=== PATIENT | female | born 1970 | race American Indian/Alaskan Native ===

== ENCOUNTER 2020-03-22 01:51 | Emergency (ER) | payer MEDICAID ==
[~2020-03-22] VITALS: Ht 152.4 cm; Wt 77.1 kg
[2020-03-22] MEDS ORDERED: DIPH50CA37 PO (02:07)
[2020-03-22] MEDS ORDERED: PROM25TA15 PO (02:07)
[2020-03-22] MEDS ORDERED: [UNRECOGNIZED DRUG - NUTRITION] (02:07)
--- NOTE | 2020-03-22 02:11 | NUR ---
Dr. Barron at bedside for MSE.
[2020-03-22] MEDS ORDERED: PROMETHAZINE HCL INJ 12.5 MG in IV DEXTROSE 5% 50 ML IV ONE (02:30)
[2020-03-22 02:36] VITALS: BP 117/73
--- NOTE | 2020-03-22 02:36 | NUR ---
Patient discharged to home in stable condition. Written and verbal after care instructions given. Patient verbalizes understanding of instructions. Stressed follow up or return to ER for worsening s/s. Patient ambulated out of ER with steady gait, no acute signs of distress, VSS, all belongings taken.
== END 2020-03-22 02:37 | disposition home or self-care (01) ==
LOC: ER 01:54
DX: R10.9 Unspecified abdominal pain (principal); R11.2 Nausea with vomiting, unspecified; G89.4 Chronic pain syndrome; Z98.84 Bariatric surgery status; Z86.711 Personal history of pulmonary embolism; Z87.11 Personal history of peptic ulcer disease
CPT/HCPCS: A4663; J2550; J7060

== ENCOUNTER 2025-03-01 21:47 | Inpatient (IN) | payer MEDICAID ==
[~2025-03-01] VITALS: Ht 152.4 cm; Wt 65.8 kg
[~2025-03-01 21:47] MED LIST: DIPH50CA37 PO; PROM25TA15 PO; [UNRECOGNIZED DRUG - NUTRITION]
[2025-03-01] MEDS ORDERED: PANTOPRAZOLE SODIUM 40 MG VIAL ONE (23:06)
[2025-03-01] MEDS: IV NORMAL SALINE 1000 ML BAG IV ONE (23:12)
[2025-03-01] MEDS: PANTOPRAZOLE SODIUM IV 80 MG in IV DEXTROSE 5% 100 ML IV ONE (23:12)
[2025-03-01 23:16] LABS: BASOPHILS % (AUTO) 0.8 % (0.0-2.0); EOSINOPHILS # (AUTO) 0.3 K/uL (0.0-0.7); EOSINOPHILS % (AUTO) 5.9 % (0.0-7.0); HEMATOCRIT 22.3 % (31.2-41.9); HEMOGLOBIN 7.5 g/dL (10.9-14.3); LYMPHOCYTES % (AUTO) 21.1 % (20.5-51.5); MEAN CORPUSCULAR HEMOGLOBIN 28.8 uug (24.7-32.8); MEAN CORPUSCULAR HGB CONC 34 g/dL (32.3-35.6); MEAN CORPUSCULAR VOLUME 85.5 fL (75.5-95.3); MONOCYTES # (AUTO) 0.4 K/uL (0.1-1.30); MONOCYTES % (AUTO) 7.6 % (0.0-11.0); NEUTROPHILS % (AUTO) 64.6 % (38.5-71.5); PLATELET COUNT (AUTO) 247 K/uL (179-408); RED BLOOD CELL COUNT(AUTO) 2.61 MIL/uL (3.63-4.92); RED CELL DISTRIBUTION WIDTH 15.5 % (12.3-17.7); WHITE BLOOD COUNT (AUTO) 4.7 K/uL (3.8-11.8)
[2025-03-01 23:17] LABS: DIFFERENTIAL COMMENT 1
[2025-03-01] MEDS ORDERED: diphenhydrAMINE 50 MG/1 ML VIAL ONE (23:23)
[2025-03-01] MEDS ORDERED: PROMETHAZINE HCL 12.5 MG SUPP.RECT RC ONE (23:24)
[2025-03-01] MEDS: diphenhydrAMINE 50 MG/1 ML VIAL IV ONE (23:32)
[2025-03-01] MEDS: PROMETHAZINE HCL 12.5 MG SUPP.RECT RC ONE (23:33)
[2025-03-01 23:34] LABS: ALBUMIN 3.3 g/dL (3.4-5.0); BILIRUBIN,DIRECT 0.1 mg/dL (0.0-0.2); BILIRUBIN,TOTAL 0.2 mg/dL (0.2-1.0); CALCIUM 9.5 mg/dL (8.5-10.1); CREATININE 0.9 mg/dL (0.6-1.3); POTASSIUM 3.6 mmol/L (3.5-5.1); TOTAL PROTEIN, SERUM 6.9 g/dL (6.4-8.2)
[2025-03-01] MEDS ORDERED: HYDROMORPHONE 1 MG/1 ML DISP.SYRIN ONE (23:52)
[2025-03-01] MEDS: HYDROMORPHONE 1 MG/1 ML DISP.SYRIN IV ONE (23:53)
[2025-03-02] MEDS ORDERED: IOHEXOL 300MG/ML 100 ML INFUS..BTL ONE (00:01)
[2025-03-02] MEDS ORDERED: HYDROMORPHONE 1 MG/1 ML DISP.SYRIN ONE ×3 (00:47→05:43)
[2025-03-02] MEDS: HYDROMORPHONE 1 MG/1 ML DISP.SYRIN IV ONE (00:49)
[2025-03-02] MEDS: IV D5 1/2 NS 1000 ML 1,000 ML IV ONE (01:00)
[2025-03-02] MEDS ORDERED: ACETAMINOPHEN 650 MG SUPP.RECT RC ONE (02:09)
[2025-03-02] MEDS ORDERED: PROMETHAZINE HCL 25 MG SUPP.RECT RC ONE (02:09)
[2025-03-02] MEDS: PROMETHAZINE HCL 12.5 MG SUPP.RECT RC ONE (02:11)
[2025-03-02] MEDS: ACETAMINOPHEN 650 MG SUPP.RECT RC PRN (02:11)
[2025-03-02] MEDS ORDERED: diphenhydrAMINE 50 MG/1 ML VIAL ONE (02:51)
[2025-03-02] MEDS: HYDROMORPHONE 1 MG/1 ML DISP.SYRIN IV PRN (02:57)
[2025-03-02] MEDS: diphenhydrAMINE 50 MG/1 ML VIAL IV ONE ×2 (02:57→10:49)
[2025-03-02 07:51] LABS: BASOPHILS % (AUTO) 0.7 % (0.0-2.0); EOSINOPHILS # (AUTO) 0.3 K/uL (0.0-0.7); EOSINOPHILS % (AUTO) 11.5 % (0.0-7.0); HEMOGLOBIN 7.6 g/dL (10.9-14.3); LYMPHOCYTES # (AUTO) 0.7 K/uL (0.8-4.8); LYMPHOCYTES % (AUTO) 25.5 % (20.5-51.5); MEAN CORPUSCULAR HEMOGLOBIN 27.9 uug (24.7-32.8); MEAN CORPUSCULAR HGB CONC 33 g/dL (32.3-35.6); MEAN CORPUSCULAR VOLUME 84.4 fL (75.5-95.3); MONOCYTES # (AUTO) 0.3 K/uL (0.1-1.30); MONOCYTES % (AUTO) 11.2 % (0.0-11.0); NEUTROPHILS # (AUTO) 1.4 K/uL (1.8-8.9); NEUTROPHILS % (AUTO) 51.1 % (38.5-71.5); PLATELET COUNT (AUTO) 198 K/uL (179-408); RED BLOOD CELL COUNT(AUTO) 2.73 MIL/uL (3.63-4.92); RED CELL DISTRIBUTION WIDTH 17.3 % (12.3-17.7); WHITE BLOOD COUNT (AUTO) 2.8 K/uL (3.8-11.8)
[2025-03-02 07:56] LABS: DIFFERENTIAL COMMENT 1
[2025-03-02 08:02] LABS: CALCIUM 8.2 mg/dL (8.5-10.1); MAGNESIUM 1.8 mg/dL (1.8-2.4); POTASSIUM 3.5 mmol/L (3.5-5.1)
[2025-03-02] MEDS ORDERED: HYDR1SYR4 IV (10:16)
[2025-03-02] MEDS ORDERED: PANT40VI IV (10:16)
[2025-03-02] MEDS ORDERED: FAMO20VI10 IV (10:16)
[2025-03-02] MEDS ORDERED: PROM25VI IV (10:16)
[2025-03-02] MEDS ORDERED: DIPH50VI18 IV (10:16)
[2025-03-02] MEDS: PANTOPRAZOLE SODIUM 40 MG VIAL IV SCH (10:48)
[2025-03-02] MEDS: PROMETHAZINE HCL 25 MG SUPP.RECT RC ONE (10:50)
[2025-03-02 12:00] VITALS: BP 146/76; TEMP 97.9; O2SAT 96
[2025-03-02] MEDS: diphenhydrAMINE 50 MG/1 ML VIAL IV PRN (16:15)
[2025-03-02 16:30] VITALS: BP 127/71; TEMP 98; O2SAT 54
[2025-03-02] MEDS ORDERED: PROPOFOL 200 MG/20 ML BOTTLE ONE (17:00)
[2025-03-03 00:46] VITALS: BP 154/78; TEMP 98; O2SAT 100
[2025-03-03 07:35] VITALS: BP 127/59; TEMP 97.6; O2SAT 96
[2025-03-03 09:55] LABS: BASOPHILS % (AUTO) 0.7 % (0.0-2.0); EOSINOPHILS # (AUTO) 0.4 K/uL (0.0-0.7); HEMATOCRIT 25.7 % (31.2-41.9); HEMOGLOBIN 8.7 g/dL (10.9-14.3); LYMPHOCYTES # (AUTO) 0.8 K/uL (0.8-4.8); LYMPHOCYTES % (AUTO) 26.2 % (20.5-51.5); MEAN CORPUSCULAR HEMOGLOBIN 28.3 uug (24.7-32.8); MEAN CORPUSCULAR HGB CONC 34 g/dL (32.3-35.6); MEAN CORPUSCULAR VOLUME 83.8 fL (75.5-95.3); MONOCYTES # (AUTO) 0.3 K/uL (0.1-1.30); MONOCYTES % (AUTO) 9.1 % (0.0-11.0); NEUTROPHILS # (AUTO) 1.6 K/uL (1.8-8.9); PLATELET COUNT (AUTO) 213 K/uL (179-408); RED BLOOD CELL COUNT(AUTO) 3.07 MIL/uL (3.63-4.92); RED CELL DISTRIBUTION WIDTH 17.3 % (12.3-17.7); WHITE BLOOD COUNT (AUTO) 3.1 K/uL (3.8-11.8)
[2025-03-03 09:57] LABS: DIFFERENTIAL COMMENT 1
[2025-03-03 11:36] VITALS: BP 150/58; TEMP 98.1; O2SAT 97
== END 2025-03-03 14:50 | disposition home or self-care (01) | DRG 253 ==
LOC: ER 21:47 → UNDOADMIN 03-02 07:47 → ICU IN 03-02 07:47 → TELE-TD3 03-02 07:47 → TELE3 03-02 08:15
PROVIDERS: ATTEND Student in an Organized Health Care Education/Training Program
PROC: 0DJ08ZZ Inspection of Upper Intestinal Tract, Via Natural or Artificial Opening Endoscopic (ICD-10-PCS; principal; 2025-03-02 17:00)
PROC: 30243N1 Transfusion of Nonautologous Red Blood Cells into Central Vein, Percutaneous Approach (ICD-10-PCS; principal; 2025-03-02 17:00)
DX: K92.0 Hematemesis (principal); E44.1 Mild protein-calorie malnutrition; D62 Acute posthemorrhagic anemia; G43.909 Migraine, unspecified, not intractable, without status migrainosus; K95.89 Other complications of other bariatric procedure; Z98.84 Bariatric surgery status; Z68.28 Body mass index [BMI] 28.0-28.9, adult; Z88.0 Allergy status to penicillin; Z86.718 Personal history of other venous thrombosis and embolism; Z88.6 Allergy status to analgesic agent; Z88.8 Allergy status to other drugs, medicaments and biological substances; G89.29 Other chronic pain
CPT/HCPCS: 36415; 71045; 83690; 83735; 84100; 85025; 85610; 86850; 86900; 86901; 86920; A4606; A4663; G0378; J1171; J1200; J2470; J3490; J7040; J7042; P9016; Q9967

== ENCOUNTER 2025-03-25 17:12 | Inpatient (IN) | payer MEDICAID ==
[~2025-03-25] VITALS: Ht 152.4 cm; Wt 63.5 kg
[~2025-03-25 17:12] MED LIST changes: -DIPH50CA37 PO; +DIPH50VI18 IV; +FAMO20VI10 IV; +PANT40VI IV; -PROM25TA15 PO; +PROM25VI IV; -[UNRECOGNIZED DRUG - NUTRITION]
[2025-03-25] MEDS ORDERED: PANTOPRAZOLE SODIUM 40 MG VIAL ONE (17:36)
[2025-03-25] MEDS ORDERED: diphenhydrAMINE 50 MG/1 ML VIAL ONE (17:36)
[2025-03-25] MEDS ORDERED: HYDROMORPHONE 1 MG/1 ML DISP.SYRIN ONE ×2 (17:37→19:45)
[2025-03-25] MEDS ORDERED: PROMETHAZINE HCL 12.5 MG SUPP.RECT RC ONE (17:38)
[2025-03-25 17:41] LABS: PLATELET COUNT (AUTO) 258 K/uL (179-408); RED BLOOD CELL COUNT(AUTO) 2.83 MIL/uL (3.63-4.92); RED CELL DISTRIBUTION WIDTH 17.1 % (12.3-17.7); WHITE BLOOD COUNT (AUTO) 2.6 K/uL (3.8-11.8)
[2025-03-25] MEDS: diphenhydrAMINE 50 MG/1 ML VIAL IV ONE (17:48)
[2025-03-25] MEDS: HYDROMORPHONE 1 MG/1 ML DISP.SYRIN IV ONE ×2 (17:49→19:54)
[2025-03-25] MEDS: PANTOPRAZOLE SODIUM 40 MG VIAL IV ONE (17:49)
[2025-03-25] MEDS: PROMETHAZINE HCL 12.5 MG SUPP.RECT RC ONE (17:49)
[2025-03-25] MEDS: IV NORMAL SALINE 1000 ML BAG IV ONE (17:50)
[2025-03-25 17:52] LABS: ASPARTATE AMINOTRANSFERASE 16.0 U/L (15-37); CREATININE 1.1 mg/dL (0.6-1.3); SODIUM SERUM 145.0 mmol/L (136-145); TOTAL PROTEIN, SERUM 6.9 g/dL (6.4-8.2); UREA NITROGEN, BLOOD 14.0 mg/dL (7-18)
[2025-03-25] MEDS ORDERED: ACETAMINOPHEN 650 MG SUPP.RECT RC PRN (21:45)
[2025-03-25] MEDS: HYDROMORPHONE 1 MG/1 ML DISP.SYRIN IV PRN (21:55)
[2025-03-25] MEDS: IV D5/ 0.9% NACL 1,000 ML IV PRN (22:16)
[2025-03-25 22:29] VITALS: BP 165/91; TEMP 98.3; O2SAT 98
[2025-03-26] MEDS ORDERED: METOCLOPRAMIDE HCL 10 MG/2 ML VIAL IV PRN (00:45)
[2025-03-26 00:51] VITALS: BP 130/94; TEMP 97.6; O2SAT 98
[2025-03-26] MEDS ORDERED: PROMETHAZINE HCL 25 MG SUPP.RECT RC ONE (01:14)
[2025-03-26] MEDS: diphenhydrAMINE 50 MG/1 ML VIAL IV ONE (01:19)
[2025-03-26] MEDS: PROMETHAZINE HCL 25 MG SUPP.RECT RC ONE (01:20)
[2025-03-26 04:21] VITALS: BP 147/57; TEMP 98.3; O2SAT 98
[2025-03-26 06:49] LABS: PLATELET COUNT (AUTO) 230 K/uL (179-408); RED BLOOD CELL COUNT(AUTO) 2.76 MIL/uL (3.63-4.92); RED CELL DISTRIBUTION WIDTH 16.7 % (12.3-17.7); WHITE BLOOD COUNT (AUTO) 2.3 K/uL (3.8-11.8)
[2025-03-26 07:03] LABS: ASPARTATE AMINOTRANSFERASE 13.0 U/L (15-37); CREATININE 0.9 mg/dL (0.6-1.3); SODIUM SERUM 142.0 mmol/L (136-145); TOTAL PROTEIN, SERUM 6.4 g/dL (6.4-8.2); UREA NITROGEN, BLOOD 12.0 mg/dL (7-18)
[2025-03-26 08:00] VITALS: BP 148/85; TEMP 97.8; O2SAT 97
[2025-03-26] MEDS ORDERED: SEVOFLURANE 250 ML BOTTLE ONE (08:14)
[2025-03-26] MEDS: PANTOPRAZOLE SODIUM 40 MG VIAL IV SCH (08:28)
[2025-03-26] MEDS ORDERED: PROPOFOL 200 MG/20 ML BOTTLE ONE (09:55)
[2025-03-26] MEDS: HYDROMORPHONE 1 MG/1 ML DISP.SYRIN IV PRN (11:34)
[2025-03-26 11:39] VITALS: BP 144/82; TEMP 98.4; O2SAT 98
[2025-03-26] MEDS ORDERED: HYDR-3980 PO (11:50)
[2025-03-26 15:59] VITALS: BP 158/78; TEMP 99.2; O2SAT 99
[2025-03-26] MEDS: diphenhydrAMINE 50 MG/1 ML VIAL IV PRN (16:25)
[2025-03-26 19:00] VITALS: BP 153/77; TEMP 99.2; O2SAT 97
[2025-03-27 06:34] VITALS: BP 178/93; TEMP 99.3; O2SAT 96
[2025-03-27 07:07] VITALS: BP 140/74; TEMP 98.4
[2025-03-27] MEDS ORDERED: PROPOFOL 200 MG/20 ML BOTTLE ONE (10:00)
[2025-03-27 10:51] VITALS: TEMP 98.2
== END 2025-03-27 13:10 | disposition left against medical advice (07) | DRG 241 ==
LOC: ER 17:14 → TELE3 20:30 → MEDSURG3 03-26 10:02
PROVIDERS: ADMIT Internal Medicine; ATTEND Internal Medicine
PROC: 0DJ08ZZ Inspection of Upper Intestinal Tract, Via Natural or Artificial Opening Endoscopic (ICD-10-PCS; 2025-03-26)
PROC: 0DB68ZX Excision of Stomach, Via Natural or Artificial Opening Endoscopic, Diagnostic (ICD-10-PCS; principal; 2025-03-27 10:00)
DX: K25.4 Chronic or unspecified gastric ulcer with hemorrhage (principal); D72.819 Decreased white blood cell count, unspecified; D62 Acute posthemorrhagic anemia; K25.7 Chronic gastric ulcer without hemorrhage or perforation; E66.9 Obesity, unspecified; Z53.29 Procedure and treatment not carried out because of patient's decision for other reasons; Z87.19 Personal history of other diseases of the digestive system; K31.84 Gastroparesis; G89.4 Chronic pain syndrome; Z98.84 Bariatric surgery status; Z88.0 Allergy status to penicillin; Z86.718 Personal history of other venous thrombosis and embolism; Z88.6 Allergy status to analgesic agent; Z88.8 Allergy status to other drugs, medicaments and biological substances; Z90.49 Acquired absence of other specified parts of digestive tract; Z68.27 Body mass index [BMI] 27.0-27.9, adult; Z53.8 Procedure and treatment not carried out for other reasons
CPT/HCPCS: 36415; 83605; 83735; 84100; 85025; 85610; 85730; 86850; 86900; 86901; A4606; A4663; G0378; J1171; J1200; J2470; J3490; J7040; J7042

== ENCOUNTER 2025-04-29 15:25 | Inpatient (IN) | payer MEDICAID ==
[~2025-04-29] VITALS: Ht 152.4 cm; Wt 61.2 kg
[~2025-04-29 15:25] MED LIST changes: +HYDR-3980 PO
[2025-04-29] MEDS ORDERED: HYDROMORPHONE 1 MG/1 ML DISP.SYRIN ONE (16:22)
[2025-04-29] MEDS ORDERED: diphenhydrAMINE 50 MG/1 ML VIAL ONE (16:22)
[2025-04-29] MEDS: diphenhydrAMINE 50 MG/1 ML VIAL IV ONE (16:26)
[2025-04-29] MEDS: HYDROMORPHONE 1 MG/1 ML DISP.SYRIN IV ONE (16:27)
[2025-04-29] MEDS ORDERED: PANTOPRAZOLE SODIUM 40 MG VIAL ONE ×2 (16:29→16:37)
[2025-04-29 16:35] LABS: PLATELET COUNT (AUTO) 302 K/uL (179-408); RED BLOOD CELL COUNT(AUTO) 2.91 MIL/uL (3.63-4.92); RED CELL DISTRIBUTION WIDTH 17.9 % (12.3-17.7); WHITE BLOOD COUNT (AUTO) 3.6 K/uL (3.8-11.8)
[2025-04-29 16:42] LABS: CREATININE 0.9 mg/dL (0.6-1.3); SODIUM SERUM 144 mmol/L (136-145); UREA NITROGEN, BLOOD 17 mg/dL (7-18)
[2025-04-29] MEDS: PANTOPRAZOLE SODIUM IV 80 MG in IV DEXTROSE 5% 100 ML IV ONE (16:46)
[2025-04-29 16:47] LABS: ASPARTATE AMINOTRANSFERASE 7 U/L (15-37); TOTAL PROTEIN, SERUM 7.2 g/dL (6.4-8.2)
[2025-04-29] MEDS: PANTOPRAZOLE SODIUM IV 80 MG in IV DEXTROSE 5% 500 ML IV ONE (17:05)
[2025-04-29] MEDS ORDERED: REMEDY ESSENTIAL ZINC PASTE 113 GM TP PRN (18:00)
[2025-04-29] MEDS ORDERED: ONDANSETRON 4 MG/2 ML VIAL IV PRN ×2 (18:00→18:45)
[2025-04-29] MEDS ORDERED: ACETAMINOPHEN 325 MG TABLET PO PRN (18:00)
[2025-04-29] MEDS ORDERED: MAGNESIUM HYDROXIDE 30 ML LIQUID UDC PO PRN (18:00)
[2025-04-29] MEDS ORDERED: MORPHINE SULFATE 2 MG/1 ML DISP.SYRIN ONE (18:35)
[2025-04-29] MEDS: MORPHINE SULFATE 2 MG/1 ML DISP.SYRIN IV PRN (18:38)
[2025-04-29 20:06] VITALS: BP 140/68; TEMP 98.3; O2SAT 97
[2025-04-29] MEDS: IV D5 1/2 NS 1000 ML 1,000 ML IV PRN (20:22)
[2025-04-29] MEDS: PANTOPRAZOLE SODIUM 40 MG VIAL IV SCH (20:34)
[2025-04-29] MEDS: HYDROMORPHONE 1 MG/1 ML DISP.SYRIN IV PRN (22:07)
[2025-04-29] MEDS: diphenhydrAMINE 50 MG/1 ML VIAL IV PRN (23:22)
[2025-04-30 04:30] VITALS: BP 152/75; TEMP 98.6; O2SAT 96
[2025-04-30 11:06] VITALS: BP 130/43; TEMP 97.6; O2SAT 100
[2025-04-30 11:19] LABS: PLATELET COUNT (AUTO) 268 K/uL (179-408); RED BLOOD CELL COUNT(AUTO) 2.81 MIL/uL (3.63-4.92); RED CELL DISTRIBUTION WIDTH 18.0 % (12.3-17.7); WHITE BLOOD COUNT (AUTO) 2.2 K/uL (3.8-11.8)
[2025-04-30 11:30] LABS: CREATININE 1.0 mg/dL (0.6-1.3); SODIUM SERUM 141.0 mmol/L (136-145); UREA NITROGEN, BLOOD 11.0 mg/dL (7-18)
[2025-04-30] MEDS: SOD FERRIC GLUC COMPLX/SUCROSE 125 MG in IV NORMAL SALINE 100 ML IV SCH (14:12)
[2025-04-30] MEDS ORDERED: HYDROMORPHONE 1 MG/ML IV (14:47)
[2025-04-30 15:30] VITALS: BP 142/75; TEMP 98.3; O2SAT 100
[2025-04-30] MEDS ORDERED: PROPOFOL 200 MG/20 ML BOTTLE ONE (18:18)
[2025-04-30] MEDS ORDERED: LIDOCAINE-MPF 2% 5 ML VIAL ONE (18:18)
[2025-04-30 18:48] VITALS: BP 149/85
[2025-04-30 19:46] VITALS: BP 150/80; TEMP 98.7; O2SAT 100
[2025-04-30] MEDS: SUCRALFATE 1 G/10 ML LIQUID UDC GT SCH (21:15)
[2025-05-01] VITALS (10 sets, daily range): BP systolic 123–175; BP diastolic 59–88; TEMP 97.8–98.7; O2SAT 95–98
[2025-05-01 06:50] LABS: PLATELET COUNT (AUTO) 207 K/uL (179-408); RED BLOOD CELL COUNT(AUTO) 2.53 MIL/uL (3.63-4.92); RED CELL DISTRIBUTION WIDTH 18.0 % (12.3-17.7)
[2025-05-01 07:13] LABS: CREATININE 0.9 mg/dL (0.6-1.3); SODIUM SERUM 142.0 mmol/L (136-145); UREA NITROGEN, BLOOD 10.0 mg/dL (7-18)
[2025-05-01 07:17] LABS: WHITE BLOOD COUNT (AUTO) 1.8 K/uL (3.8-11.8)
[2025-05-01 08:49] LABS: EOSINOPHILS % (MANUAL) 9 % (0-8); LYMPHOCYTES % (MANUAL) 24 % (20-40); MONOCYTES % (MANUAL) 8 % (2-10); NEUTROPHILS % (MANUAL) 59 % (42-75)
[2025-05-01 08:50] LABS: PLATELET ESTIMATE ADEQUATE
[2025-05-01] MEDS: MAGNESIUM SULFATE/D5W 100 ML IV SCH (10:00)
[2025-05-01] MEDS: SUCRALFATE 1 G TABLET PO SCH (11:30)
[2025-05-01] MEDS: HYDROCODONE/APAP 10-325 MG TABLET PO PRN (18:03)
== END 2025-05-01 18:50 | disposition home health service (06) | DRG 241 ==
LOC: ER 15:25 → TELE3 18:21
PROVIDERS: ADMIT Student in an Organized Health Care Education/Training Program; ATTEND Student in an Organized Health Care Education/Training Program
PROC: 0DB68ZX Excision of Stomach, Via Natural or Artificial Opening Endoscopic, Diagnostic (ICD-10-PCS; principal; 2025-04-30 18:00)
PROC: 30233N1 Transfusion of Nonautologous Red Blood Cells into Peripheral Vein, Percutaneous Approach (ICD-10-PCS; 2025-05-01)
DX: K29.71 Gastritis, unspecified, with bleeding (principal); K20.91 Esophagitis, unspecified with bleeding; E44.1 Mild protein-calorie malnutrition; D62 Acute posthemorrhagic anemia; K31.84 Gastroparesis; G89.4 Chronic pain syndrome; Z86.718 Personal history of other venous thrombosis and embolism; Z88.0 Allergy status to penicillin; Z87.19 Personal history of other diseases of the digestive system; Z88.6 Allergy status to analgesic agent; Z88.8 Allergy status to other drugs, medicaments and biological substances; Z98.84 Bariatric surgery status; D72.819 Decreased white blood cell count, unspecified; Z90.49 Acquired absence of other specified parts of digestive tract; J98.11 Atelectasis
CPT/HCPCS: 36415; 70030-TC; 71045; 83690; 83735; 84100; 84443; 84484; 85018; 85025; 85730; 86850; 86900; 86901; 86920; 88313-TC; 88342; A4606; A4663; G0378; J1171; J1200; J2270; J2470; J2916; J3475; J3490; J7040; J7042; J7060; P9016